=== PATIENT | female | born 1995 | race Two or more races ===

== ENCOUNTER 2016-07-22 00:28 | Emergency (ER) | payer MEDICAID ==
[~2016-07-22] VITALS: Ht 162.6 cm; Wt 75.7 kg
[2016-07-22 00:39] VITALS: BP 128/76
[2016-07-22] MEDS ORDERED: methylPREDNISolone SOD SUCC 125 MG/2 ML VL IM ONE (02:30)
[2016-07-22] MEDS ORDERED: diphenhdrAMINE HCL 50 MG/1 ML VL IM ONE (02:30)
[2016-07-22 02:38] LABS: Basophils # (auto) 0 uL; Basophils % (auto) 0.4 % (0.0-2.0); Eosinophils # (auto) 0.1 uL; Eosinophils % (auto) 0.7 % (0.0-7.0); Hematocrit 45.3 % (36.0-46.0); Lymphocytes # (auto) 1.9 uL; Lymphocytes % (auto) 19.9 % (10.0-50.0); Mean Corpuscular Hemoglobin 30.6 pg (28.0-32.0); Mean Corpuscular Hgb Conc. 33.1 g/dL (32.0-36.0); Mean Corpuscular Volume 92.5 fL (80.0-100.0); Mean Platelet Volume 9.7 fL (7.4-10.4); Monocytes # (auto) 0.7 uL; Monocytes % (auto) 7.9 % (0.0-12.0); Neutrophils # (auto) 6.7 uL; Neutrophils % (auto) 71.1 % (37.0-80.0); Platelet Count (auto) 288 10^3/uL (140-450); White Blood Cell 9.4 10^3/uL (4.4-10.8)
[2016-07-22 02:52] LABS: Albumin 3.9 g/dL (3.4-5.0); Calcium 9.2 mg/dL (8.5-10.1); Potassium 3.5 mmol/L (3.5-5.1); Total Protein 8.6 g/dL (6.4-8.2)
== END 2016-07-22 03:58 | disposition home or self-care (01) ==
LOC: ER 00:32
DX: T78.49XA Other allergy, initial encounter (principal); L29.9 Pruritus, unspecified; R94.5 Abnormal results of liver function studies; Z90.49 Acquired absence of other specified parts of digestive tract
CPT/HCPCS: 36415; 80053; 82248; 85025; 96372; 99284; J1200; J2930